=== PATIENT | male | born 1945 | race Caucasian/White ===

== ENCOUNTER 2022-10-20 21:12 | Emergency (ER) | payer MEDICARE ==
[~2022-10-20] VITALS: Ht 170.2 cm; Wt 100.0 kg
[2022-10-20 21:28] VITALS: BP 124/73
[2022-10-20 21:31] VITALS: BP 129/70
[2022-10-20 21:43] LABS: BASO% 0.2 % (0-3); HEMOGLOBIN 12.5 g/dl (14.0-18.0); IMMATURE GRANULOCYTES 0.2 % (0.0-5.0); MEAN CELL VOLUME 95.1 fL CALC (80.0-100.0); MEAN CORPUSCULAR HGB 30.5 pG CALC (26.0-32.0); MEAN CORPUSCULAR HGB CONC 32.1 g/dL CAL (32.0-36.0); MONO% 6.5 % (2-13); NEUT# 11.53 thou/uL (1.82-7.42); NEUT% 88.1 % (42-76); RED BLOOD COUNT 4.1 mill/uL (4.70-6.10); RED CELL DISTRI WIDTH 13.6 % (11.5-15.5)
[2022-10-20 21:46] VITALS: BP 129/72
[2022-10-20] MEDS ORDERED: ASPIRIN81 MG PO (21:54)
[2022-10-20 21:55] LABS: ALBUMIN 4.3 g/dL (3.2-5.0); ALKALINE PHOSPHATASE 112 u/l (38-126); ANION GAP 17 (6-22 (CALC)); BILIRUBIN, TOTAL 0.6 mg/dL (0.2-1.3); BUN 25 mg/dL (8-23); BUN/CREATININE RATIO 21 (12-20 (CALC)); CHLORIDE 109 mmol/l (95-108); CREATININE 1.2 mg/dL (0.7-1.3); GFR FOR AFR.AMER. > 60 ML/MIN (>=60 (CALC)); GFR OTHER RACES 59 ML/MIN (>=60 (CALC)); SGOT/AST 35 u/l (19-48); SODIUM 137 mmol/l (137-146); TOTAL PROTEIN 7.8 g/dL (6.3-8.2)
[2022-10-20] MEDS ORDERED: ATORVASTATIN CA40 MG PO (21:55)
[2022-10-20] MEDS ORDERED: MELOXICAM7.5 MG PO (21:57)
[2022-10-20] MEDS ORDERED: AMLODIPINE BES2.5 MG PO (21:58)
[2022-10-20 21:59] LABS: CARBON DIOXIDE 15 mmol/l (22-30)
[2022-10-20 22:01] VITALS: BP 114/66
[2022-10-21 00:59] VITALS: BP 128/75
[2022-10-21 01:00] VITALS: BP 128/75
== END 2022-10-21 01:06 | disposition home or self-care (01) ==
LOC: ED 21:12
PROVIDERS: Emergency Medicine
DX: R07.9 Chest pain, unspecified (principal); I25.10 Atherosclerotic heart disease of native coronary artery without angina pectoris; I10 Essential (primary) hypertension; I35.8 Other nonrheumatic aortic valve disorders

== ENCOUNTER 2024-05-18 09:42 | Observation (INO) | payer MEDICARE ==
[~2024-05-18] VITALS: Ht 170.2 cm; Wt 97.2 kg
[2024-05-18] VITALS (16 sets, daily range): BP systolic 114–138; BP diastolic 58–76
[~2024-05-18 09:42] MED LIST: AMLODIPINE BES2.5 MG PO; ASPIRIN81 MG PO; ATORVASTATIN CA40 MG PO; MELOXICAM7.5 MG PO
[2024-05-18 10:16] LABS: URINE BILIRUBIN - DIPSTICK Negative (NEGATIVE); URINE BLOOD DIPSTICK Moderate (NEGATIVE); URINE COLOR Yellow; URINE GLUCOSE - DIPSTICK Negative (NEGATIVE); URINE KETONE 15 mg/dL (NEGATIVE); URINE LEUK ESTERASE Large (NEGATIVE); URINE NITRITE - DIPSTICK Positive (Negative); URINE PROTEIN - DIPSTICK >=300 mg/dL (NEG-TRACE); URINE SPECIFIC GRAVITY 1.025
[2024-05-18 10:19] LABS: URINE BACTERIA MANY hpf; URINE WBC >100 WBC/hpf (0-5)
[2024-05-18] MEDS ORDERED: cefTRIAXone SODIUM 2 GM in SODIUM CHLORIDE 0.9% 100 ML IV STA (10:23)
[2024-05-18] MEDS ORDERED: SODIUM CHLORIDE 0.9% 1,000 ML BAG IV ONE (10:25)
[2024-05-18 10:46] LABS: BASO% 0.3 % (0-3); EOS% 0.2 % (0-8); HEMATOCRIT 41.2 % (39.0-50.0); HEMOGLOBIN 13.7 g/dl (14.0-18.0); IMMATURE GRANULOCYTES 0.2 % (0.0-5.0); LYMPH% 3.7 % (15-41); MEAN CELL VOLUME 93.8 fL CALC (80.0-100.0); MEAN CORPUSCULAR HGB 31.2 pG CALC (26.0-32.0); MEAN CORPUSCULAR HGB CONC 33.3 g/dL CAL (32.0-36.0); MONO% 8.7 % (2-13); NEUT# 15.89 thou/uL (1.82-7.42); NEUT% 86.9 % (42-76); RED BLOOD COUNT 4.39 mill/uL (4.70-6.10); RED CELL DISTRI WIDTH 12.9 % (11.5-15.5)
[2024-05-18] MEDS ORDERED: OMEPRAZOLE DR40 MG PO (10:48)
[2024-05-18] MEDS ORDERED: LOPRESSOR25 M1 PO (10:49)
[2024-05-18] MEDS ORDERED: PRESERVISION PO (10:50)
[2024-05-18 11:15] LABS: ALBUMIN 4.2 g/dL (3.2-5.0); CREATININE 1.1 mg/dL (0.7-1.3); POTASSIUM 4.2 mmol/l (3.5-5.1); TOTAL PROTEIN 7.4 g/dL (6.3-8.2)
[2024-05-18 11:18] LABS: BILIRUBIN, TOTAL 1.6 mg/dL (0.2-1.3)
[2024-05-18] MEDS ORDERED: MAGNESIUM HYDROXIDE 30 ML UDC PO PRN (12:00)
[2024-05-18] MEDS ORDERED: SODIUM CHLORIDE 0.9% 1,000 ML IV PRN (12:00)
[2024-05-18] MEDS ORDERED: ACETAMINOPHEN 325 MG/TAB PO PRN (12:00)
[2024-05-18] MEDS ORDERED: METOPROLOL TARTRATE 25 MG/TAB PO SCH (12:30)
[2024-05-18] MEDS ORDERED: amLODIPine BESYLATE 2.5 MG/TAB PO SCH (13:00)
[2024-05-18] MEDS ORDERED: ALBUTEROL SULFATE 8 GM INH IN PRN (14:00)
[2024-05-18] MEDS ORDERED: ENOXAPARIN SODIUM 40 MG/0.4 ML SYR SC SCH (21:00)
[2024-05-19 04:49] VITALS: BP 123/59
[2024-05-19 05:27] VITALS: BP 123/59
[2024-05-19 05:43] LABS: BASO% 0.3 % (0-3); EOS% 0.5 % (0-8); HEMATOCRIT 36.6 % (39.0-50.0); HEMOGLOBIN 11.9 g/dl (14.0-18.0); IMMATURE GRANULOCYTES 0.3 % (0.0-5.0); MEAN CELL VOLUME 97.1 fL CALC (80.0-100.0); MEAN CORPUSCULAR HGB 31.6 pG CALC (26.0-32.0); MEAN CORPUSCULAR HGB CONC 32.5 g/dL CAL (32.0-36.0); MONO% 8.7 % (2-13); NEUT# 13.52 thou/uL (1.82-7.42); NEUT% 84.2 % (42-76); RED BLOOD COUNT 3.77 mill/uL (4.70-6.10)
[2024-05-19 05:50] LABS: BILIRUBIN, TOTAL 1.2 mg/dL (0.2-1.3); CREATININE 1.1 mg/dL (0.7-1.3); MAGNESIUM 2.1 mg/dL (1.6-2.3); POTASSIUM 3.7 mmol/l (3.5-5.1); TOTAL PROTEIN 6.1 g/dL (6.3-8.2)
[2024-05-19 06:01] LABS: ALBUMIN 3.2 g/dL (3.2-5.0)
[2024-05-19 07:00] VITALS: BP 131/64
[2024-05-19] MEDS ORDERED: ATORVASTATIN CALCIUM 40 MG/TAB PO SCH (09:00)
[2024-05-19] MEDS ORDERED: PANTOPRAZOLE SODIUM Sesquihydr 40 MG/TAB PO SCH (09:00)
[2024-05-19] MEDS ORDERED: ASPIRIN 81 MG/TAB PO SCH (09:00)
[2024-05-19 15:34] VITALS: BP 114/49
[2024-05-19 18:27] VITALS: BP 135/69
[2024-05-19 19:10] VITALS: BP 135/69
[2024-05-20 04:18] VITALS: BP 130/72
[2024-05-20 04:43] VITALS: BP 130/72
[2024-05-20 07:00] VITALS: BP 144/72
[2024-05-20 07:37] LABS: HEMATOCRIT 36.4 % (39.0-50.0); HEMOGLOBIN 12.1 g/dl (14.0-18.0); MEAN CELL VOLUME 93.8 fL CALC (80.0-100.0); MEAN CORPUSCULAR HGB 31.2 pG CALC (26.0-32.0); MEAN CORPUSCULAR HGB CONC 33.2 g/dL CAL (32.0-36.0); RED BLOOD COUNT 3.88 mill/uL (4.70-6.10)
[2024-05-20 08:01] LABS: ALBUMIN 3.2 g/dL (3.2-5.0); POTASSIUM 3.9 mmol/l (3.5-5.1); TOTAL PROTEIN 6.1 g/dL (6.3-8.2)
[2024-05-20 08:18] LABS: BILIRUBIN, TOTAL 0.7 mg/dL (0.2-1.3)
[2024-05-20 08:42] VITALS: BP 144/72
[2024-05-20] MEDS ORDERED: CIPROFLOXACN500 MG PO (09:29)
== END 2024-05-20 11:49 | disposition home or self-care (01) ==
LOC: ED 09:42 → ED-I 11:30 → ED 11:30 → MS2 11:43
PROVIDERS: Emergency Medicine; Nurse Practitioner Family; ADMIT Internal Medicine; ATTEND Internal Medicine
DX: A41.9 Sepsis, unspecified organism (principal); N39.0 Urinary tract infection, site not specified; B96.20 Unspecified Escherichia coli [E. coli] as the cause of diseases classified elsewhere; I10 Essential (primary) hypertension; J44.9 Chronic obstructive pulmonary disease, unspecified; I25.10 Atherosclerotic heart disease of native coronary artery without angina pectoris; Z20.822 Contact with and (suspected) exposure to COVID-19
CPT/HCPCS: J1650